=== PATIENT | female | born 1985 | race Caucasian/White ===

== ENCOUNTER 2018-01-08 06:09 | Inpatient (IN) | payer BC ==
[2018-01-08] MEDS: CEFAZOLIN 2 GM/50 ML (PMX) 50 ML IVPB (06:00)
[2018-01-08] MEDS ORDERED: MIDAZOLAM 1 MG/ML 2 ML INJ (06:32)
[2018-01-08] MEDS ORDERED: ROCURONIUM 50 MG INJ (06:32)
[2018-01-08] MEDS ORDERED: LIDOCAINE 2% (SDV) 5 ML INJ (06:32)
[2018-01-08] MEDS ORDERED: GLYCOPYRROLATE 0.4 MG INJ (06:32)
[2018-01-08] MEDS ORDERED: PROPOFOL 20 ML (06:32)
[2018-01-08] MEDS ORDERED: NEOSTIGMINE 3 MG/3 ML SYRINGE (06:32)
[2018-01-08] MEDS ORDERED: FENTAnyl 50 MCG/ML VIAL (06:33)
[2018-01-08] MEDS ORDERED: morphine SULFATE/PF (10 MG/10 ML) INJ (06:33)
[2018-01-08] MEDS ORDERED: DEXAMETHASONE 4 MG/ML 1 ML INJ (06:34)
[2018-01-08] MEDS ORDERED: ONDANSETRON 4 MG INJ ×2 (06:34→10:49)
[2018-01-08] MEDS ORDERED: CEFAZOLIN 1 GM INJ (07:00)
[2018-01-08] MEDS ORDERED: THROMBIN 5000 UNIT VIAL (07:11)
[2018-01-08] MEDS: BUPIVACAINE 0.25%/EPI (MDV) 50 ML VIAL INJ (07:28)
[2018-01-08] MEDS ORDERED: BUPIVACAINE 0.75%/DEXT (SPINAL) 2 ML INJ (07:55)
[2018-01-08] MEDS ORDERED: LACTATED RINGER'S 1,000 ML IV* (08:00)
[2018-01-08] MEDS ORDERED: LABETALOL HCL 20MG INJ (08:13)
[2018-01-08] MEDS ORDERED: MEPERIDINE 25 MG INJ (10:48)
[2018-01-08] MEDS: LACTATED RINGER'S 1,000 ML IV ×2 (10:49→17:09)
[2018-01-08] MEDS ORDERED: HYDROmorphONE 1 MG/5 ML IV SYRINGE IV ×5 (10:50→11:30)
[2018-01-08] MEDS: HYDROmorphONE 1 MG/5 ML IV SYRINGE IV ×2 (10:54→11:14)
[2018-01-08] MEDS ORDERED: DIPHENHYDRAMINE 50 MG CAP PO (11:00)
[2018-01-08] MEDS ORDERED: HYDROCODONE/APAP (5/325) TAB PO (11:00)
[2018-01-08] MEDS ORDERED: EPHEDrine SULFATE 50 MG/5 ML SYG IV ×2 (11:00→11:30)
[2018-01-08] MEDS ORDERED: MIDAZOLAM 1 MG/ML 2 ML INJ IV ×2 (11:00→11:30)
[2018-01-08] MEDS ORDERED: ALBUTEROL 0.083% (NEB) 2.5 MG/3 ML AMP HHN ×2 (11:00→11:30)
[2018-01-08] MEDS ORDERED: DIPHENHYDRAMINE 50 MG INJ IV ×2 (11:00→11:30)
[2018-01-08] MEDS ORDERED: KETOROLAC 30 MG INJ IV ×2 (11:00→11:30)
[2018-01-08] MEDS ORDERED: METOCLOPRAMIDE 10 MG INJ IV ×2 (11:00→11:30)
[2018-01-08] MEDS ORDERED: FENTAnyl 50 MCG/ML VIAL IV ×4 (11:00→11:30)
[2018-01-08] MEDS ORDERED: hydrALAzine 20 MG INJ IV ×2 (11:00→11:30)
[2018-01-08] MEDS ORDERED: MEPERIDINE 25 MG INJ IV (11:00)
[2018-01-08] MEDS ORDERED: LABETALOL HCL 20MG INJ IV ×2 (11:00→11:30)
[2018-01-08] MEDS ORDERED: ONDANSETRON 4 MG INJ IV (11:00)
[2018-01-08] MEDS ORDERED: ZOLPIDEM 5 MG TAB PO (11:00)
[2018-01-08 11:01] LABS: ADD UMIC YES; UR ASCORBIC ACID NEGATIVE (NEGATIVE); UR BILIRUBIN (Dip) NEGATIVE (NEGATIVE); UR BLOOD (Dip) 2+ mg/dL (NEGATIVE); UR CLARITY CLEAR (CLEAR); UR COLOR COLORLESS (YELLOW); UR GLUCOSE (Dip) NEGATIVE (NEGATIVE); UR KETONES (Dip) TRACE mg/dL (NEGATIVE); UR LEUKOCYTE ESTERASE (Dip) NEGATIVE Leu/ul (NEGATIVE); UR NITRITE (Dip) NEGATIVE (NEGATIVE); UR RBC 1 /HPF (0-5); UR SPECIFIC GRAVITY (Dip) 1.005 (1.003-1.030); UR TOTAL PROTEIN (Dip) NEGATIVE (NEGATIVE); UR UROBILINOGEN (Dip) NEGATIVE (NEGATIVE); UR WBC 0 /HPF (0-5)
[2018-01-08] MEDS: MEPERIDINE 25 MG INJ IV (11:15)
[2018-01-08] MEDS: ONDANSETRON 4 MG INJ IV (11:15)
[2018-01-08] MEDS: LACTATED RINGER'S 1,000 ML IV* (11:30)
[2018-01-08] MEDS: ALBUTEROL HFA 8 GM INHALER INH ×3 (12:00→20:00)
[2018-01-08] MEDS: CEFAZOLIN 1 GM/50 ML (PMX) 50 ML IVPB ×2 (14:13→21:51)
[2018-01-08] MEDS: KETOROLAC 30 MG INJ IV ×3 (14:16→23:07)
[2018-01-08] MEDS: METOCLOPRAMIDE 10 MG TAB PO (17:08)
[2018-01-08] MEDS: HYDROCODONE/APAP (5/325) TAB PO (19:54)
[2018-01-08] MEDS: MONTELUKAST 10 MG TAB PO (21:51)
[2018-01-08] MEDS ORDERED: VITAMIN A & D 5 GM OINT PACKET TOP (23:15)
[2018-01-09] MEDS: METOCLOPRAMIDE 10 MG TAB PO ×4 (00:01→18:35)
[2018-01-09] MEDS: LACTATED RINGER'S 1,000 ML IV (02:47)
[2018-01-09] MEDS: ALBUTEROL HFA 8 GM INHALER INH ×6 (04:00→20:00)
[2018-01-09] MEDS: KETOROLAC 30 MG INJ IV ×4 (04:54→22:35)
[2018-01-09 05:42] LABS: ADD MAN DIFF? NO
[2018-01-09 05:45] LABS: WHITE BLOOD COUNT 11.8 10^3/ul (4.8-10.8)
[2018-01-09 05:45] LABS: BASOPHILS % 0.3 % (0.0-2.0); EOSINOPHILS % 0.2 % (0.0-7.0); HEMATOCRIT 32.6 % (37.0-47.0); HEMOGLOBIN 10.7 g/dl (12.0-16.0); LYMPHOCYTES # 1.3 10^3/ul (0.8-2.9); LYMPHOCYTES % 11.4 % (15.0-51.0); MEAN CORPUSCULAR HEMOGLOBIN 29.5 pg (29.0-33.0); MEAN CORPUSCULAR HGB CONC 32.8 g/dl (32.0-37.0); MEAN CORPUSCULAR VOLUME 89.8 fl (82.0-101.0); MEAN PLATELET VOLUME 11.1 fl (7.4-10.4); MONOCYTE # 0.9 10^3/ul (0.3-0.9); MONOCYTES % 7.6 % (0.0-11.0); NEUTROPHIL # 9.5 10^3/ul (1.6-7.5); NEUTROPHILS % 80.1 % (39.0-77.0); PLATELET COUNT 244 10^3/UL (140-415); RED BLOOD COUNT 3.63 10^6/ul (4.20-5.40); RED CELL DISTRIBUTION WIDTH 12.1 % (11.5-14.5)
[2018-01-09 06:23] LABS: ANION GAP 11 (8-16); BLOOD UREA NITROGEN 7 mg/dl (7-20); CARBON DIOXIDE 24 mmol/L (21-31); CHLORIDE 108 mmol/L (97-110); CREATININE 0.55 mg/dl (0.44-1.00); POTASSIUM 4.1 mmol/L (3.5-5.1); SODIUM 139 mmol/L (135-144)
[2018-01-09] MEDS: CEFAZOLIN 1 GM/50 ML (PMX) 50 ML IVPB ×3 (06:23→21:41)
[2018-01-09] MEDS ORDERED: NON-FORMULARY/PATIENT OWN MED (Cetirizine Hcl* 10 MG) PO (09:00)
[2018-01-09] MEDS: HYDROCODONE/APAP (5/325) TAB PO ×2 (09:02→19:07)
[2018-01-09] MEDS: LORATADINE 10 MG TAB PO (09:02)
[2018-01-09] MEDS: FLUTICASONE 0.05% 16 GM NAS SPRAY NASAL (11:22)
[2018-01-09] MEDS: BISACODYL (EC) 5 MG TAB PO (11:27)
[2018-01-09] MEDS: MONTELUKAST 10 MG TAB PO (20:39)
[2018-01-10] MEDS: METOCLOPRAMIDE 10 MG TAB PO ×3 (00:08→11:23)
[2018-01-10] MEDS: ALBUTEROL HFA 8 GM INHALER INH ×4 (04:00→12:00)
[2018-01-10] MEDS: CEFAZOLIN 1 GM/50 ML (PMX) 50 ML IVPB (05:51)
[2018-01-10] MEDS: IBUPROFEN 800 MG TAB PO ×2 (05:51→13:06)
[2018-01-10 06:13] LABS: ADD MAN DIFF? NO
[2018-01-10 06:19] LABS: WHITE BLOOD COUNT 6.5 10^3/ul (4.8-10.8)
[2018-01-10 06:20] LABS: BASOPHILS % 0.5 % (0.0-2.0); EOSINOPHILS # 0.1 10^3/ul (0.0-0.5); EOSINOPHILS % 1.9 % (0.0-7.0); HEMATOCRIT 33.7 % (37.0-47.0); HEMOGLOBIN 10.8 g/dl (12.0-16.0); LYMPHOCYTES # 2.1 10^3/ul (0.8-2.9); LYMPHOCYTES % 32.3 % (15.0-51.0); MEAN CORPUSCULAR HEMOGLOBIN 28.4 pg (29.0-33.0); MEAN CORPUSCULAR VOLUME 88.7 fl (82.0-101.0); MEAN PLATELET VOLUME 11.3 fl (7.4-10.4); MONOCYTE # 0.5 10^3/ul (0.3-0.9); MONOCYTES % 7.7 % (0.0-11.0); NEUTROPHIL # 3.7 10^3/ul (1.6-7.5); NEUTROPHILS % 57.3 % (39.0-77.0); PLATELET COUNT 217 10^3/UL (140-415); RED CELL DISTRIBUTION WIDTH 12.5 % (11.5-14.5)
[2018-01-10] MEDS: LORATADINE 10 MG TAB PO (09:03)
[2018-01-10] MEDS: FLUTICASONE 0.05% 16 GM NAS SPRAY NASAL (09:07)
[2018-01-10] MEDS: HYDROCODONE/APAP (5/325) TAB PO (11:23)
== END 2018-01-10 13:15 | disposition home or self-care (01) | DRG 743 ==
LOC: REC 06:09 → MS1 12:28
PROVIDERS: Obstetrics & Gynecology
PROC: 0UT97ZZ Resection of Uterus, Via Natural or Artificial Opening (ICD-10-PCS; principal; 2018-01-08 07:30)
PROC: 0UT57ZZ Resection of Right Fallopian Tube, Via Natural or Artificial Opening (ICD-10-PCS; 2018-01-08 07:30)
PROC: 0JQC0ZZ Repair Pelvic Region Subcutaneous Tissue and Fascia, Open Approach (ICD-10-PCS; 2018-01-08 07:30)
DX: N81.4 Uterovaginal prolapse, unspecified (principal); D25.9 Leiomyoma of uterus, unspecified; K59.00 Constipation, unspecified; D64.9 Anemia, unspecified; N81.6 Rectocele
CPT/HCPCS: 80051; 81001; 82565; 84520; 84703; 85025; 86850; 86900; 86901; 86920; 87086; 88305